=== PATIENT | male | born 1940 | race Caucasian/White ===

== ENCOUNTER 2020-11-24 19:31 | Inpatient (IN) ==
[2020-11-24] MEDS ORDERED: SODIUM CHLORIDE 0.9% 1,000 ML IV STA (20:09)
[2020-11-24 21:04] LABS: Hematocrit 23.3 VOL% (42.0-52.0); Hemoglobin 7.3 GM/DL (14.0-18.0); Immature Granulocytes % 0.7 %; Immature Granulocytes Absolute 0.03 #; Lymphocytes # 0.3 10*3/uL (1.4-4.0); Lymphocytes % 7.7 % (21.2-54.2); Mean Corpuscular HGB Conc 31.3 GM/DL (32-36); Mean Corpuscular Volume 80.6 FL (87-102); Mean Platelet Volume 9.1 FL (9.6-12.0); Monocytes % 5.7 % (1.7-12.7); Neutrophils % 85.9 % (38.7-73.9); Platelet Count 296 T/CUMM (130-400); Red Blood Count 2.89 MC/CUMM (3.8-5.5); Red Cell Distribution Width 13.7 % (9.3-17.3); White Blood Count 4.4 T/CUMM (4-12)
[2020-11-24 21:15] LABS: Alanine Aminotransferase 19 U/L (16-61); Albumin 2.7 G/DL (3.4-5.0); Alkaline Phosphatase 49 U/L (45-117); Aspartate Amino Transferase 25 U/L (0-37); Bilirubin,Total < 0.39 MG/DL (0.2-1.0); Blood Urea Nitrogen 32 MG/DL (7-18); Calcium 8.4 MG/DL (8.5-10.1); Estimated Glom Filtration Rate 30 ML/MIN; Ferritin 72.5 ng/ml (26-388); Glucose 103 MG/DL (74-106); Osmolality,Calculated 274.2 MOS/KG (273-304); Total Protein 6.3 G/DL (6.4-8.3)
[2020-11-25] MEDS ORDERED: cefTRIAXone 2,000 MG in SODIUM CHLORIDE 0.9% 100 ML IV SCH (01:30)
[2020-11-25] MEDS ORDERED: ACETAMINOPHEN 325 MG TABLET PO PRN (01:35)
[2020-11-25] MEDS ORDERED: DEXTROSE 50% 25 GM/50 ML VIAL IV PRN (01:35)
[2020-11-25] MEDS ORDERED: GLUCAGON 1 MG VIAL IM PRN (01:35)
[2020-11-25] MEDS ORDERED: ONDANSETRON 4 MG/2 ML VIAL IV PRN (01:35)
[2020-11-25] MEDS ORDERED: DOCUSATE SODIUM 100 MG CAPSULE PO PRN (01:35)
[2020-11-25] MEDS: metroNIDAZOLE INJ 500 MG in PREMIX 1 EACH IV SCH ×3 (02:48→17:43)
[2020-11-25 03:38] LABS: INR 4.7
[2020-11-25] MEDS: DOXYCYCLINE HYCLATE INJ 100 MG in SODIUM CHLORIDE 0.9% 100 ML IV SCH ×2 (03:53→16:04)
[2020-11-25] MEDS: SODIUM CHLORIDE 0.9% 1,000 ML IV SCH ×3 (03:53→22:36)
[2020-11-25 04:06] LABS: Partial Thromboplastin Time 72.5 SECS (23.9-33.8)
[2020-11-25 05:26] LABS: Bacteria,Urine Occasional /HPF (Few); Bilirubin,Urine Negative (Negative); Blood, Urine Negative (Negative); Glucose,Urine (UA) Negative (Negative); Ketones,Urine Negative (Negative); Mucus,Urine Occasional /LPF (Occasional); Nitrite,Urine Negative (Negative); Protein,Urine Negative; RBC,Urine 1 /HPF (0-4); Urine Appearance CLEAR (Clear); Urine Color Yellow (Yellow); Urine Specific Gravity 1.012 (1.001-1.035); Urine Urobilinogen < 2.0 EU/DL (0.2-1.0)
[2020-11-25 05:55] LABS: Basophils % 0.2 % (0.0-0.8); Eosinophils % 0.2 % (0.00-10.9); Hematocrit 24.2 VOL% (42.0-52.0); Hemoglobin 7.2 GM/DL (14.0-18.0); Immature Granulocytes % 1.2 %; Immature Granulocytes Absolute 0.05 #; Lymphocytes # 0.4 10*3/uL (1.4-4.0); Lymphocytes % 8.7 % (21.2-54.2); Mean Corpuscular HGB Conc 29.8 GM/DL (32-36); Mean Corpuscular Volume 83.7 FL (87-102); Mean Platelet Volume 9.3 FL (9.6-12.0); Neutrophils % 80.7 % (38.7-73.9); Platelet Count 290 T/CUMM (130-400); Red Blood Count 2.89 MC/CUMM (3.8-5.5); Red Cell Distribution Width 13.8 % (9.3-17.3); White Blood Count 4.1 T/CUMM (4-12)
[2020-11-25] MEDS ORDERED: ENOXAPARIN 40 MG/0.4 ML SYRINGE SUBCUT SCH (06:00)
[2020-11-25 06:15] LABS: Albumin 2.5 G/DL (3.4-5.0); Bilirubin,Total 0.4 MG/DL (0.2-1.0); Calcium 8.3 MG/DL (8.5-10.1); Osmolality,Calculated 279.7 MOS/KG (273-304); Total Protein 5.8 G/DL (6.4-8.3)
[2020-11-25] MEDS: DEXAMETHASONE 4 MG/1 ML VIAL IV SCH (08:21)
[2020-11-25] MEDS: FAMOTIDINE 20 MG TABLET PO SCH ×3 (08:22→22:34)
[2020-11-25] MEDS: CLOPIDOGREL 75 MG TABLET PO SCH ×2 (08:22→10:43)
[2020-11-25] MEDS: ZINC GLUCONATE 50 MG TABLET PO SCH ×2 (08:22→10:43)
[2020-11-25] MEDS: CETIRIZINE 10 MG TABLET PO SCH ×2 (08:22→10:43)
[2020-11-25] MEDS: CHOLECALCIFEROL 1,000 UNIT TABLET PO SCH ×2 (08:22→10:43)
[2020-11-25] MEDS: ASCORBIC ACID 500 MG TABLET PO SCH ×3 (08:22→22:34)
[2020-11-25] MEDS ORDERED: WARFARIN 2.5 MG TABLET PO SCH (17:00)
[2020-11-25] MEDS: PANTOPRAZOLE 40 MG VIAL IV SCH (17:42)
[2020-11-25] MEDS ORDERED: WARFARIN 7.5 MG TABLET PO SCH (18:00)
[2020-11-26] MEDS: metroNIDAZOLE INJ 500 MG in PREMIX 1 EACH IV SCH ×3 (02:26→16:33)
[2020-11-26] MEDS: DOXYCYCLINE HYCLATE INJ 100 MG in SODIUM CHLORIDE 0.9% 100 ML IV SCH ×2 (05:13→13:42)
[2020-11-26 05:42] LABS: Hematocrit 21.9 VOL% (42.0-52.0); Hemoglobin 6.8 GM/DL (14.0-18.0); Immature Granulocytes % 1.3 %; Immature Granulocytes Absolute 0.06 #; Lymphocytes # 0.4 10*3/uL (1.4-4.0); Lymphocytes % 8.5 % (21.2-54.2); Mean Corpuscular HGB Conc 31.1 GM/DL (32-36); Mean Corpuscular Volume 81.1 FL (87-102); Mean Platelet Volume 9.2 FL (9.6-12.0); Monocytes % 7.1 % (1.7-12.7); Neutrophils % 83.1 % (38.7-73.9); Platelet Count 340 T/CUMM (130-400); Red Cell Distribution Width 13.8 % (9.3-17.3); White Blood Count 4.5 T/CUMM (4-12)
[2020-11-26 05:56] LABS: Alanine Aminotransferase 20 U/L (16-61); Albumin 2.3 G/DL (3.4-5.0); Alkaline Phosphatase 46 U/L (45-117); Aspartate Amino Transferase 22 U/L (0-37); Bilirubin,Total < 0.39 MG/DL (0.2-1.0); Blood Urea Nitrogen 25 MG/DL (7-18); Calcium 8.4 MG/DL (8.5-10.1); Estimated Glom Filtration Rate 43 ML/MIN; Glucose 100 MG/DL (74-106); Osmolality,Calculated 284.3 MOS/KG (273-304); Total Protein 5.7 G/DL (6.4-8.3)
[2020-11-26 06:48] LABS: PT Patient Result 55.8 SECS (9.8-11.9)
[2020-11-26 06:52] LABS: INR 5.7
[2020-11-26] MEDS ORDERED: SODIUM CHLORIDE 0.9% 1,000 ML IV PRN (07:17)
[2020-11-26] MEDS ORDERED: LEVOFLOXACIN INJ 500 MG in PREMIX 1 EACH IV ONE (08:30)
[2020-11-26] MEDS: PANTOPRAZOLE 40 MG VIAL IV SCH (08:34)
[2020-11-26] MEDS: FAMOTIDINE 20 MG TABLET PO SCH ×2 (08:35→22:09)
[2020-11-26] MEDS: ASCORBIC ACID 500 MG TABLET PO SCH ×2 (08:35→22:09)
[2020-11-26] MEDS: DEXAMETHASONE 4 MG/1 ML VIAL IV SCH (08:35)
[2020-11-26] MEDS: ZINC GLUCONATE 50 MG TABLET PO SCH (08:35)
[2020-11-26] MEDS: CETIRIZINE 10 MG TABLET PO SCH (08:35)
[2020-11-26] MEDS: CHOLECALCIFEROL 1,000 UNIT TABLET PO SCH (08:35)
[2020-11-26] MEDS ORDERED: MIDAZOLAM 2 MG/2 ML VIAL IV ONE (09:00)
[2020-11-26] MEDS ORDERED: fentaNYL 100 MCG/2 ML VIAL IV ONE (09:00)
[2020-11-26] MEDS: SODIUM CHLORIDE 0.9% 1,000 ML IV SCH ×2 (13:29→13:30)
[2020-11-27] MEDS: SODIUM CHLORIDE 0.9% 1,000 ML IV SCH ×4 (01:44→20:53)
[2020-11-27] MEDS: metroNIDAZOLE INJ 500 MG in PREMIX 1 EACH IV SCH ×3 (01:45→16:48)
[2020-11-27] MEDS: DOXYCYCLINE HYCLATE INJ 100 MG in SODIUM CHLORIDE 0.9% 100 ML IV SCH ×2 (03:24→15:37)
[2020-11-27 05:03] LABS: Hematocrit 21.6 VOL% (42.0-52.0); Hemoglobin 6.7 GM/DL (14.0-18.0); Immature Granulocytes % 0.8 %; Immature Granulocytes Absolute 0.06 #; Lymphocytes # 0.5 10*3/uL (1.4-4.0); Lymphocytes % 6.2 % (21.2-54.2); Mean Corpuscular Volume 80.9 FL (87-102); Monocytes % 6.5 % (1.7-12.7); Neutrophils % 86.5 % (38.7-73.9); Platelet Count 350 T/CUMM (130-400); Red Blood Count 2.67 MC/CUMM (3.8-5.5); Red Cell Distribution Width 13.8 % (9.3-17.3); White Blood Count 7.3 T/CUMM (4-12)
[2020-11-27 05:27] LABS: PT Patient Result 53.9 SECS (9.8-11.9)
[2020-11-27 05:29] LABS: Calcium 7.6 MG/DL (8.5-10.1); Osmolality,Calculated 290.7 MOS/KG (273-304)
[2020-11-27 05:32] LABS: INR 5.5
[2020-11-27] MEDS ORDERED: fentaNYL 100 MCG/2 ML VIAL IV ONE (07:00)
[2020-11-27] MEDS ORDERED: MIDAZOLAM 2 MG/2 ML VIAL IV ONE (07:00)
[2020-11-27] MEDS ORDERED: LEVOFLOXACIN INJ 500 MG in PREMIX 1 EACH IV ONE (07:00)
[2020-11-27] MEDS ORDERED: SODIUM CHLORIDE 0.9% 1,000 ML IV PRN (07:24)
[2020-11-27] MEDS: ZINC GLUCONATE 50 MG TABLET PO SCH (08:55)
[2020-11-27] MEDS: ASCORBIC ACID 500 MG TABLET PO SCH ×2 (08:55→20:53)
[2020-11-27] MEDS: CETIRIZINE 10 MG TABLET PO SCH (08:55)
[2020-11-27] MEDS: CHOLECALCIFEROL 1,000 UNIT TABLET PO SCH (08:55)
[2020-11-27] MEDS: FAMOTIDINE 20 MG TABLET PO SCH ×2 (08:55→20:53)
[2020-11-27] MEDS: PANTOPRAZOLE 40 MG VIAL IV SCH (09:44)
[2020-11-27] MEDS: DEXAMETHASONE 4 MG/1 ML VIAL IV SCH (09:44)
[2020-11-28] MEDS: metroNIDAZOLE INJ 500 MG in PREMIX 1 EACH IV SCH ×3 (01:09→18:32)
[2020-11-28] MEDS: SODIUM CHLORIDE 0.9% 1,000 ML IV SCH ×3 (01:13→18:32)
[2020-11-28] MEDS: DOXYCYCLINE HYCLATE INJ 100 MG in SODIUM CHLORIDE 0.9% 100 ML IV SCH ×2 (02:20→13:31)
[2020-11-28 04:41] LABS: Hematocrit 31.1 VOL% (42.0-52.0); Immature Granulocytes % 1.8 %; Immature Granulocytes Absolute 0.12 #; Lymphocytes # 0.6 10*3/uL (1.4-4.0); Lymphocytes % 8.4 % (21.2-54.2); Mean Corpuscular HGB Conc 32.8 GM/DL (32-36); Mean Corpuscular Volume 83.6 FL (87-102); Monocytes % 7.8 % (1.7-12.7); Platelet Count 392 T/CUMM (130-400); Red Cell Distribution Width 15.2 % (9.3-17.3); White Blood Count 6.5 T/CUMM (4-12)
[2020-11-28 04:58] LABS: Calcium 8.8 MG/DL (8.5-10.1); Osmolality,Calculated 285.1 MOS/KG (273-304)
[2020-11-28 05:04] LABS: INR 3.5; PT Patient Result 35.6 SECS (9.8-11.9)
[2020-11-28 05:08] LABS: Red Blood Count 3.72 MC/CUMM (3.8-5.5)
[2020-11-28 05:09] LABS: Hemoglobin 10.2 GM/DL (14.0-18.0)
[2020-11-28 05:27] LABS: Hypochromasia 1+; Lymphocytes 11 % (20-55); Microcytosis 1+; Ovalocytes Slight; Platelet Estimate Adequate; Segmented Neutrophils 77 % (50-85); Total Cells Counted 100
[2020-11-28] MEDS: CHOLECALCIFEROL 1,000 UNIT TABLET PO SCH (08:47)
[2020-11-28] MEDS: DEXAMETHASONE 4 MG/1 ML VIAL IV SCH (08:47)
[2020-11-28] MEDS: PANTOPRAZOLE 40 MG VIAL IV SCH (08:48)
[2020-11-28] MEDS: FAMOTIDINE 20 MG TABLET PO SCH ×2 (08:48→21:15)
[2020-11-28] MEDS: CETIRIZINE 10 MG TABLET PO SCH (08:48)
[2020-11-28] MEDS: ASCORBIC ACID 500 MG TABLET PO SCH ×2 (08:48→21:15)
[2020-11-28] MEDS: ZINC GLUCONATE 50 MG TABLET PO SCH (10:15)
[2020-11-29] MEDS: SODIUM CHLORIDE 0.9% 1,000 ML IV SCH ×4 (01:20→23:18)
[2020-11-29] MEDS: metroNIDAZOLE INJ 500 MG in PREMIX 1 EACH IV SCH ×3 (01:20→18:03)
[2020-11-29] MEDS: DOXYCYCLINE HYCLATE INJ 100 MG in SODIUM CHLORIDE 0.9% 100 ML IV SCH ×2 (02:30→15:00)
[2020-11-29 05:22] LABS: INR 3.6
[2020-11-29] MEDS: PANTOPRAZOLE 40 MG VIAL IV SCH (09:15)
[2020-11-29] MEDS: DEXAMETHASONE 4 MG/1 ML VIAL IV SCH (09:15)
[2020-11-29] MEDS: CHOLECALCIFEROL 1,000 UNIT TABLET PO SCH (09:16)
[2020-11-29] MEDS: ASCORBIC ACID 500 MG TABLET PO SCH ×2 (09:16→22:16)
[2020-11-29] MEDS: CETIRIZINE 10 MG TABLET PO SCH (09:16)
[2020-11-29] MEDS: FAMOTIDINE 20 MG TABLET PO SCH ×2 (09:16→22:16)
[2020-11-29] MEDS: ZINC GLUCONATE 50 MG TABLET PO SCH (09:16)
[2020-11-30] MEDS: metroNIDAZOLE INJ 500 MG in PREMIX 1 EACH IV SCH ×3 (03:17→17:58)
[2020-11-30] MEDS: DOXYCYCLINE HYCLATE INJ 100 MG in SODIUM CHLORIDE 0.9% 100 ML IV SCH ×2 (04:47→15:11)
[2020-11-30 05:53] LABS: Basophils % 0.1 % (0.0-0.8); Eosinophils % 0.1 % (0.00-10.9); Hematocrit 34.8 VOL% (42.0-52.0); Hemoglobin 11.2 GM/DL (14.0-18.0); Immature Granulocytes % 1.8 %; Immature Granulocytes Absolute 0.13 #; Lymphocytes # 0.9 10*3/uL (1.4-4.0); Lymphocytes % 11.9 % (21.2-54.2); Mean Corpuscular HGB Conc 32.2 GM/DL (32-36); Mean Corpuscular Volume 82.9 FL (87-102); Mean Platelet Volume 8.8 FL (9.6-12.0); Monocytes % 10.1 % (1.7-12.7); Platelet Count 450 T/CUMM (130-400); Red Cell Distribution Width 15.8 % (9.3-17.3); White Blood Count 7.2 T/CUMM (4-12)
[2020-11-30 06:08] LABS: PT Patient Result 39.5 SECS (9.8-11.9)
[2020-11-30 06:12] LABS: Albumin 2.5 G/DL (3.4-5.0); Bilirubin,Total 0.6 MG/DL (0.2-1.0); Calcium 8.7 MG/DL (8.5-10.1); Osmolality,Calculated 284.1 MOS/KG (273-304); Total Protein 5.7 G/DL (6.4-8.3)
[2020-11-30] MEDS: PANTOPRAZOLE 40 MG VIAL IV SCH (08:32)
[2020-11-30] MEDS: DEXAMETHASONE 4 MG/1 ML VIAL IV SCH (08:32)
[2020-11-30] MEDS: CHOLECALCIFEROL 1,000 UNIT TABLET PO SCH (08:33)
[2020-11-30] MEDS: ZINC GLUCONATE 50 MG TABLET PO SCH (08:33)
[2020-11-30] MEDS: ASCORBIC ACID 500 MG TABLET PO SCH ×2 (08:33→21:00)
[2020-11-30] MEDS: CETIRIZINE 10 MG TABLET PO SCH (08:33)
[2020-11-30] MEDS: FAMOTIDINE 20 MG TABLET PO SCH ×2 (08:33→21:00)
[2020-11-30] MEDS: SODIUM CHLORIDE 0.9% 1,000 ML IV SCH ×2 (12:43→22:56)
[2020-12-01] MEDS: metroNIDAZOLE INJ 500 MG in PREMIX 1 EACH IV SCH ×3 (00:43→19:32)
[2020-12-01] MEDS: DOXYCYCLINE HYCLATE INJ 100 MG in SODIUM CHLORIDE 0.9% 100 ML IV SCH ×2 (01:56→14:45)
[2020-12-01 05:25] LABS: INR 3.6
[2020-12-01 05:28] LABS: PT Patient Result 36.1 SECS (9.8-11.9)
[2020-12-01 05:42] LABS: Calcium 8.6 MG/DL (8.5-10.1)
[2020-12-01] MEDS: FAMOTIDINE 20 MG TABLET PO SCH ×2 (08:41→22:25)
[2020-12-01] MEDS: ZINC GLUCONATE 50 MG TABLET PO SCH (08:41)
[2020-12-01] MEDS: PANTOPRAZOLE 40 MG VIAL IV SCH (08:41)
[2020-12-01] MEDS: ASCORBIC ACID 500 MG TABLET PO SCH ×2 (08:41→22:25)
[2020-12-01] MEDS: CHOLECALCIFEROL 1,000 UNIT TABLET PO SCH (08:41)
[2020-12-01] MEDS: CETIRIZINE 10 MG TABLET PO SCH (08:42)
[2020-12-01] MEDS: DEXAMETHASONE 4 MG/1 ML VIAL IV SCH (08:42)
[2020-12-01] MEDS: SODIUM CHLORIDE 0.9% 1,000 ML IV SCH ×2 (08:45→14:06)
[2020-12-02 04:00] LABS: Hematocrit 35.6 VOL% (42.0-52.0); Hemoglobin 11.5 GM/DL (14.0-18.0); Immature Granulocytes % 1.5 %; Immature Granulocytes Absolute 0.13 #; Lymphocytes % 11.6 % (21.2-54.2); Mean Corpuscular HGB Conc 32.3 GM/DL (32-36); Mean Platelet Volume 9.1 FL (9.6-12.0); Monocytes % 10.1 % (1.7-12.7); Neutrophils % 76.8 % (38.7-73.9); Platelet Count 463 T/CUMM (130-400); Red Blood Count 4.29 MC/CUMM (3.8-5.5); Red Cell Distribution Width 16.5 % (9.3-17.3); White Blood Count 8.6 T/CUMM (4-12)
[2020-12-02 04:09] LABS: INR 2.9; PT Patient Result 29.8 SECS (9.8-11.9)
[2020-12-02 04:27] LABS: Albumin 2.7 G/DL (3.4-5.0); Bilirubin,Total 0.5 MG/DL (0.2-1.0); Calcium 8.6 MG/DL (8.5-10.1); Osmolality,Calculated 283.3 MOS/KG (273-304); Total Protein 5.7 G/DL (6.4-8.3)
[2020-12-02] MEDS: DOXYCYCLINE HYCLATE INJ 100 MG in SODIUM CHLORIDE 0.9% 100 ML IV SCH (05:21)
[2020-12-02] MEDS: metroNIDAZOLE INJ 500 MG in PREMIX 1 EACH IV SCH ×2 (05:21→12:38)
[2020-12-02] MEDS ORDERED: MAGNESIUM SULF RIDER 4 GM in PREMIX 1 EACH IV ONE (08:30)
[2020-12-02] MEDS: DEXAMETHASONE 4 MG/1 ML VIAL IV SCH (10:23)
[2020-12-02] MEDS: ZINC GLUCONATE 50 MG TABLET PO SCH (10:54)
[2020-12-02] MEDS: ASCORBIC ACID 500 MG TABLET PO SCH ×2 (10:54→20:43)
[2020-12-02] MEDS: CHOLECALCIFEROL 1,000 UNIT TABLET PO SCH (10:54)
[2020-12-02] MEDS: FAMOTIDINE 20 MG TABLET PO SCH ×2 (10:54→20:43)
[2020-12-02] MEDS: CETIRIZINE 10 MG TABLET PO SCH (10:55)
[2020-12-02] MEDS: PANTOPRAZOLE 40 MG VIAL IV SCH (12:38)
[2020-12-02] MEDS: SODIUM CHLORIDE 0.9% 1,000 ML IV SCH ×3 (12:39→20:42)
[2020-12-03] MEDS: SODIUM CHLORIDE 0.9% 1,000 ML IV SCH ×3 (04:00→20:16)
[2020-12-03 04:41] LABS: Hematocrit 33.7 VOL% (42.0-52.0); Hemoglobin 10.9 GM/DL (14.0-18.0); Immature Granulocytes % 1.5 %; Immature Granulocytes Absolute 0.09 #; Lymphocytes # 0.6 10*3/uL (1.4-4.0); Lymphocytes % 10.8 % (21.2-54.2); Mean Corpuscular HGB Conc 32.3 GM/DL (32-36); Mean Corpuscular Volume 81.6 FL (87-102); Mean Platelet Volume 9.1 FL (9.6-12.0); Neutrophils % 76.7 % (38.7-73.9); Platelet Count 443 T/CUMM (130-400); Red Blood Count 4.13 MC/CUMM (3.8-5.5); Red Cell Distribution Width 16.9 % (9.3-17.3); White Blood Count 5.9 T/CUMM (4-12)
[2020-12-03 04:54] LABS: INR 2.4; PT Patient Result 24.3 SECS (9.8-11.9)
[2020-12-03 05:12] LABS: Albumin 2.6 G/DL (3.4-5.0); Bilirubin,Total 0.5 MG/DL (0.2-1.0); Calcium 8.6 MG/DL (8.5-10.1); Osmolality,Calculated 280.5 MOS/KG (273-304); Total Protein 5.6 G/DL (6.4-8.3)
[2020-12-03] MEDS: CHOLECALCIFEROL 1,000 UNIT TABLET PO SCH (11:18)
[2020-12-03] MEDS: ASCORBIC ACID 500 MG TABLET PO SCH ×2 (11:18→20:16)
[2020-12-03] MEDS: FAMOTIDINE 20 MG TABLET PO SCH ×2 (11:18→20:16)
[2020-12-03] MEDS: PANTOPRAZOLE 40 MG VIAL IV SCH (11:18)
[2020-12-03] MEDS: DEXAMETHASONE 4 MG/1 ML VIAL IV SCH (11:18)
[2020-12-03] MEDS: CETIRIZINE 10 MG TABLET PO SCH (11:18)
[2020-12-03] MEDS: ZINC GLUCONATE 50 MG TABLET PO SCH (11:18)
[2020-12-03] MEDS: HEPARIN DRIP 25,000 UNITS/500 ML PREMIX IV SCH (17:02)
[2020-12-04 02:55] LABS: Basophils % 0.1 % (0.0-0.8); Immature Granulocytes % 1.1 %; Immature Granulocytes Absolute 0.09 #; Lymphocytes # 0.9 10*3/uL (1.4-4.0); Lymphocytes % 10.7 % (21.2-54.2); Mean Corpuscular HGB Conc 31.6 GM/DL (32-36); Mean Corpuscular Volume 83.7 FL (87-102); Mean Platelet Volume 9.3 FL (9.6-12.0); Monocytes % 9.4 % (1.7-12.7); Neutrophils % 78.7 % (38.7-73.9); Platelet Count 515 T/CUMM (130-400); Red Blood Count 4.54 MC/CUMM (3.8-5.5); Red Cell Distribution Width 17.2 % (9.3-17.3); White Blood Count 8.1 T/CUMM (4-12)
[2020-12-04 03:03] LABS: Bilirubin,Total 0.6 MG/DL (0.2-1.0); Calcium 8.5 MG/DL (8.5-10.1); Ferritin 127.2 ng/ml (26-388); Osmolality,Calculated 280.5 MOS/KG (273-304); Total Protein 6.3 G/DL (6.4-8.3)
[2020-12-04 03:36] LABS: INR 2.3
[2020-12-04 03:39] LABS: PT Patient Result 23.7 SECS (9.8-11.9)
[2020-12-04] MEDS: SODIUM CHLORIDE 0.9% 1,000 ML IV SCH (06:06)
[2020-12-04] MEDS: DEXAMETHASONE 4 MG/1 ML VIAL IV SCH (09:15)
[2020-12-04] MEDS: FAMOTIDINE 20 MG TABLET PO SCH ×2 (09:15→21:46)
[2020-12-04] MEDS: ZINC GLUCONATE 50 MG TABLET PO SCH (09:15)
[2020-12-04] MEDS: CETIRIZINE 10 MG TABLET PO SCH (09:15)
[2020-12-04] MEDS: CHOLECALCIFEROL 1,000 UNIT TABLET PO SCH (09:15)
[2020-12-04] MEDS: ASCORBIC ACID 500 MG TABLET PO SCH ×2 (09:15→21:46)
[2020-12-04] MEDS: PANTOPRAZOLE 40 MG VIAL IV SCH (09:15)
[2020-12-04 15:41] LABS: INR 2.2
[2020-12-04 15:48] LABS: PT Patient Result 22.9 SECS (9.8-11.9)
[2020-12-04] MEDS: HEPARIN DRIP 25,000 UNITS/500 ML PREMIX IV SCH (18:05)
[2020-12-05 00:56] LABS: Basophils % 0.1 % (0.0-0.8); Hematocrit 33.4 VOL% (42.0-52.0); Hemoglobin 10.6 GM/DL (14.0-18.0); Immature Granulocytes Absolute 0.07 #; Lymphocytes # 0.8 10*3/uL (1.4-4.0); Mean Corpuscular HGB Conc 31.7 GM/DL (32-36); Mean Corpuscular Volume 83.1 FL (87-102); Mean Platelet Volume 9.6 FL (9.6-12.0); Monocytes % 9.2 % (1.7-12.7); Neutrophils % 78.7 % (38.7-73.9); Platelet Count 422 T/CUMM (130-400); Red Blood Count 4.02 MC/CUMM (3.8-5.5); Red Cell Distribution Width 17.3 % (9.3-17.3); White Blood Count 7.2 T/CUMM (4-12)
[2020-12-05 01:07] LABS: INR 2.1; PT Patient Result 21.9 SECS (9.8-11.9)
[2020-12-05 01:26] LABS: Calcium 8.7 MG/DL (8.5-10.1); Osmolality,Calculated 281.7 MOS/KG (273-304)
[2020-12-05] MEDS: SODIUM CHLORIDE 0.9% 1,000 ML IV SCH (07:25)
[2020-12-05] MEDS: CETIRIZINE 10 MG TABLET PO SCH (08:26)
[2020-12-05] MEDS: FAMOTIDINE 20 MG TABLET PO SCH ×2 (08:26→21:49)
[2020-12-05] MEDS: ZINC GLUCONATE 50 MG TABLET PO SCH (08:26)
[2020-12-05] MEDS: ASCORBIC ACID 500 MG TABLET PO SCH ×2 (08:26→21:49)
[2020-12-05] MEDS: CHOLECALCIFEROL 1,000 UNIT TABLET PO SCH (08:26)
[2020-12-05] MEDS: PANTOPRAZOLE 40 MG VIAL IV SCH (08:26)
[2020-12-05] MEDS: HEPARIN DRIP 25,000 UNITS/500 ML PREMIX IV SCH (14:21)
[2020-12-06] MEDS: CHOLECALCIFEROL 1,000 UNIT TABLET PO SCH (08:09)
[2020-12-06] MEDS: ZINC GLUCONATE 50 MG TABLET PO SCH (08:09)
[2020-12-06] MEDS: ASCORBIC ACID 500 MG TABLET PO SCH ×2 (08:09→21:40)
[2020-12-06] MEDS: FAMOTIDINE 20 MG TABLET PO SCH ×2 (08:10→21:40)
[2020-12-06] MEDS: CETIRIZINE 10 MG TABLET PO SCH (08:10)
[2020-12-06] MEDS: PANTOPRAZOLE 40 MG VIAL IV SCH (08:11)
[2020-12-06 09:54] LABS: Basophils % 0.1 % (0.0-0.8); Hematocrit 34.3 VOL% (42.0-52.0); Hemoglobin 11.1 GM/DL (14.0-18.0); Immature Granulocytes % 0.9 %; Immature Granulocytes Absolute 0.07 #; Lymphocytes # 0.9 10*3/uL (1.4-4.0); Lymphocytes % 11.3 % (21.2-54.2); Mean Corpuscular HGB Conc 32.4 GM/DL (32-36); Mean Corpuscular Volume 83.1 FL (87-102); Mean Platelet Volume 9.9 FL (9.6-12.0); Monocytes % 10.1 % (1.7-12.7); Neutrophils % 77.6 % (38.7-73.9); Platelet Count 374 T/CUMM (130-400); Red Blood Count 4.13 MC/CUMM (3.8-5.5); Red Cell Distribution Width 17.9 % (9.3-17.3)
[2020-12-06 10:07] LABS: Calcium 8.9 MG/DL (8.5-10.1); Osmolality,Calculated 279.5 MOS/KG (273-304)
[2020-12-06] MEDS: HEPARIN DRIP 25,000 UNITS/500 ML PREMIX IV SCH (13:41)
[2020-12-06 15:11] LABS: INR 1.5; PT Patient Result 15.3 SECS (9.8-11.9)
[2020-12-07] MEDS: HEPARIN DRIP 25,000 UNITS/500 ML PREMIX IV SCH (00:14)
[2020-12-07 06:47] LABS: INR 1.3; PT Patient Result 14.1 SECS (9.8-11.9)
[2020-12-07] MEDS: PANTOPRAZOLE 40 MG VIAL IV SCH (09:29)
[2020-12-07] MEDS: CHOLECALCIFEROL 1,000 UNIT TABLET PO SCH (09:30)
[2020-12-07] MEDS: FAMOTIDINE 20 MG TABLET PO SCH ×2 (09:30→20:29)
[2020-12-07] MEDS: ASCORBIC ACID 500 MG TABLET PO SCH ×2 (09:30→20:29)
[2020-12-07] MEDS: ZINC GLUCONATE 50 MG TABLET PO SCH (09:30)
[2020-12-07] MEDS: CETIRIZINE 10 MG TABLET PO SCH (09:30)
[2020-12-08 02:33] LABS: Basophils % 0.1 % (0.0-0.8); Eosinophils # 0.1 10*3/uL (0.0-0.87); Eosinophils % 1.1 % (0.00-10.9); Hematocrit 32.3 VOL% (42.0-52.0); Hemoglobin 10.2 GM/DL (14.0-18.0); Immature Granulocytes Absolute 0.07 #; Lymphocytes # 1.2 10*3/uL (1.4-4.0); Lymphocytes % 17.5 % (21.2-54.2); Mean Corpuscular HGB Conc 31.6 GM/DL (32-36); Mean Platelet Volume 9.4 FL (9.6-12.0); Monocytes % 11.7 % (1.7-12.7); Neutrophils % 68.6 % (38.7-73.9); Platelet Count 302 T/CUMM (130-400); Red Cell Distribution Width 18.3 % (9.3-17.3)
[2020-12-08 02:43] LABS: INR 1.2; PT Patient Result 12.5 SECS (9.8-11.9)
[2020-12-08 02:49] LABS: Osmolality,Calculated 279.5 MOS/KG (273-304)
[2020-12-08] MEDS: HEPARIN DRIP 25,000 UNITS/500 ML PREMIX IV SCH (05:09)
[2020-12-08] MEDS: ASCORBIC ACID 500 MG TABLET PO SCH ×2 (09:29→22:06)
[2020-12-08] MEDS: ZINC GLUCONATE 50 MG TABLET PO SCH (09:30)
[2020-12-08] MEDS: CETIRIZINE 10 MG TABLET PO SCH (09:30)
[2020-12-08] MEDS: CHOLECALCIFEROL 1,000 UNIT TABLET PO SCH (09:30)
[2020-12-08] MEDS: FAMOTIDINE 20 MG TABLET PO SCH ×2 (09:30→22:06)
[2020-12-08] MEDS: PANTOPRAZOLE 40 MG VIAL IV SCH (09:33)
[2020-12-09] MEDS: HEPARIN DRIP 25,000 UNITS/500 ML PREMIX IV SCH ×2 (05:38→15:45)
[2020-12-09 05:41] LABS: Basophils % 0.3 % (0.0-0.8); Eosinophils % 0.5 % (0.00-10.9); Hematocrit 33.7 VOL% (42.0-52.0); Hemoglobin 10.3 GM/DL (14.0-18.0); Immature Granulocytes % 0.7 %; Immature Granulocytes Absolute 0.04 #; Lymphocytes # 1.2 10*3/uL (1.4-4.0); Lymphocytes % 19.8 % (21.2-54.2); Mean Corpuscular HGB Conc 30.6 GM/DL (32-36); Mean Corpuscular Volume 86.4 FL (87-102); Mean Platelet Volume 9.6 FL (9.6-12.0); Monocytes % 11.7 % (1.7-12.7); Platelet Count 261 T/CUMM (130-400); Red Cell Distribution Width 18.7 % (9.3-17.3); White Blood Count 5.9 T/CUMM (4-12)
[2020-12-09 05:57] LABS: Calcium 9.1 MG/DL (8.5-10.1); Osmolality,Calculated 284.1 MOS/KG (273-304)
[2020-12-09 06:09] LABS: INR 1.1; PT Patient Result 12.2 SECS (9.8-11.9)
[2020-12-09] MEDS: FAMOTIDINE 20 MG TABLET PO SCH ×2 (08:22→20:49)
[2020-12-09] MEDS: CHOLECALCIFEROL 1,000 UNIT TABLET PO SCH (08:22)
[2020-12-09] MEDS: ZINC GLUCONATE 50 MG TABLET PO SCH (08:22)
[2020-12-09] MEDS: ASCORBIC ACID 500 MG TABLET PO SCH ×2 (08:22→20:43)
[2020-12-09] MEDS: PANTOPRAZOLE 40 MG VIAL IV SCH (08:22)
[2020-12-09] MEDS: CETIRIZINE 10 MG TABLET PO SCH (08:23)
[2020-12-09] MEDS ORDERED: fentaNYL 100 MCG/2 ML VIAL IV ONE (13:50)
[2020-12-09] MEDS ORDERED: DIAZEPAM 5 MG TABLET PO ONE (13:50)
[2020-12-09] MEDS ORDERED: MIDAZOLAM 2 MG/2 ML VIAL IV ONE (13:50)
[2020-12-09] MEDS ORDERED: SODIUM CHLORIDE 0.45% 1,000 ML IV SCH (14:00)
[2020-12-10 06:06] LABS: Basophils % 0.3 % (0.0-0.8); Eosinophils # 0.1 10*3/uL (0.0-0.87); Hematocrit 32.2 VOL% (42.0-52.0); Hemoglobin 10.2 GM/DL (14.0-18.0); Immature Granulocytes Absolute 0.06 #; Lymphocytes # 1.1 10*3/uL (1.4-4.0); Lymphocytes % 17.1 % (21.2-54.2); Mean Corpuscular HGB Conc 31.7 GM/DL (32-36); Mean Corpuscular Volume 84.5 FL (87-102); Mean Platelet Volume 9.4 FL (9.6-12.0); Monocytes % 10.9 % (1.7-12.7); Neutrophils % 69.7 % (38.7-73.9); Platelet Count 258 T/CUMM (130-400); Red Blood Count 3.81 MC/CUMM (3.8-5.5); Red Cell Distribution Width 18.8 % (9.3-17.3); White Blood Count 6.3 T/CUMM (4-12)
[2020-12-10 06:13] LABS: INR 1.1; PT Patient Result 11.7 SECS (9.8-11.9)
[2020-12-10 06:20] LABS: Calcium 9.1 MG/DL (8.5-10.1); Osmolality,Calculated 276.7 MOS/KG (273-304)
[2020-12-10] MEDS: PANTOPRAZOLE 40 MG VIAL IV SCH (08:09)
[2020-12-10] MEDS: CHOLECALCIFEROL 1,000 UNIT TABLET PO SCH (08:09)
[2020-12-10] MEDS: FAMOTIDINE 20 MG TABLET PO SCH (08:09)
[2020-12-10] MEDS: ZINC GLUCONATE 50 MG TABLET PO SCH (08:09)
[2020-12-10] MEDS: ASCORBIC ACID 500 MG TABLET PO SCH (08:09)
[2020-12-10] MEDS: CETIRIZINE 10 MG TABLET PO SCH (08:10)
[2020-12-10 08:29] VITALS: BP 136/66
== END 2020-12-10 11:45 | disposition home health service (06) | DRG 177 ==
LOC: N.ED 19:31 → SUATTDRO 23:27 → N.EDINP 23:27 → N.2E 11-25 00:27
PROVIDERS: ADMIT Internal Medicine; ATTEND Internal Medicine